=== PATIENT | female | born 1940 | race Caucasian/White ===

== ENCOUNTER 2023-11-01 12:07 | Emergency (ER) | payer MEDICARE, SELFPAY ==
[2023-11-01] VITALS (7 sets, daily range): BP systolic 142–169; BP diastolic 51–66; BMI 32.8
--- NOTE | 2023-11-01 15:09 | CM ---
CM received consult from RN regarding concerns that patient is unable to care for herself at home. CM reviewed medical records. This is the first presented noted in [facility]. CM will follow up.
--- NOTE | 2023-11-01 15:43 | CM ---
Addendum entered by Angelita Osei RN 11/01/23 15:54:
Patient has been to [facility] as per nimali, but she would not like her placed there if needed.
Original Note:
CM met with patient in room and niece in room. Patient's niece reports patient lives alone. Niece and patient's daughter are supportive, but cannot at this time provide 24 hour supervision. Niece reports that patient often does not wear her oxygen
and she believes that is contributing to some changes in behavior. Patient has been increasingly confused in the last few weeks. Patient called nimali in the middle of the night to complain that Jatin Emerson was in her apartment. Niece was able to
reorient her at that time. Patient lives in an apartment with elevators. Patient's niece reports that patient has been 'waiting for her mother to pick her up' in the lobby of the apartment complex.
Patient has been resistant to placement. CM advised that patient may need 24 hour supervision pending clinical work up. Robin will discuss further options including caregivers in the home. CM will continue to follow as needed.
[2023-11-01 17:15] LABS: Urine Albumin Negative (Neg - Trace); Urine Bilirubin Negative (Negative); Urine Character Clear (Clear); Urine Color Straw; Urine Glucose Trace (Negative); Urine Ketone Negative (Negative); Urine Leukocyte Negative (Negative); Urine Nitrite Negative (Negative); Urine Occult Blood Negative (Negative); Urine Urobilinogen Negative (Neg - 1+); Urine pH 6.5 (5.0-9.0)
[2023-11-01 17:26] LABS: % Basophils 3.2 % (0-2); % Eosinophils 7.5 % (0-6); % Immature Granulocytes 0.6 % (0-0.5); % Lymphocytes 36.3 % (20.5-51.1); % Monocytes 11.9 % (1.7-9.3); % Neutrophils 40.5 % (42.2-75.2); Absolute Basophils 0.2 10^3/uL (0-0.2); Absolute Eosinophils 0.4 10^3/uL (0-0.7); Absolute Lymphocytes 1.8 10^3/uL (1.2-3.4); Absolute Monocytes 0.6 10^3/uL (0.1-0.6); Hematocrit 27.2 % (37.0-47.0); Hemoglobin 9.5 g/dL (12.0-16.0); Mean Corp Hgb Conc. 34.9 g/dL (33.0-37.0); Mean Corpuscular Hgb 38.2 pg (27.0-31.0); Mean Corpuscular Volume 109.2 fL (81.0-99.0); Mean Platelet Volume 11.7 fL (7.4-10.4); Nucleated Red Blood Cells % 0 %; Platelet Count 409 10^3/uL (130-400); Red Blood Cell Count 2.49 10^6/uL (4.20-5.40)
[2023-11-01 17:30] LABS: Venous Blood Gas B.E. -0.2 mmol/L (-4 to +4); Venous Blood Gas HCO3 24.8 mmol/L (22-27); Venous Blood Gas O2 Sat % 98.5 %; Venous Blood Gas pCO2 41 mmHg (35-48); Venous Blood Gas pH 7.39 (7.32-7.43); Venous Blood Gas pO2 139 mmHg (30-50)
[2023-11-01 17:41] LABS: ALT (SGPT) 24 U/L (0-35); AST (SGOT) 24 U/L (14-36); Albumin 4.2 g/dl (3.5-5.0); Alkaline Phosphatase 94 U/L (38-126); Blood Urea Nitrogen 48 mg/dl (7-17); Calcium 10.7 mg/dl (8.4-10.2); Carbon Dioxide 23 mmol/L (22-30); Chloride 101 mmol/L (98-107); Estimated Creatinine Clearance 22 ml/min; Glucose 130 mg/dl (70-99); Potassium 5.5 mmol/L (3.5-5.1); Sodium 133 mmol/L (135-145); Total Bilirubin 0.6 mg/dl (0.2-1.3); Total Protein 7.3 g/dl (6.3-8.2); eGFR 27.44
[2023-11-01 17:43] LABS: Anisocytosis 2+; Macrocytosis 2+; Microcytosis 1+; Normal RBC Morphology No; Polychromasia Slight; Spherocytes 1+
--- NOTE | 2023-11-01 19:17 | ED.GENMED ---
History of Present Illness
General
Chief Complaint: Change in Mental Status
Source: patient and family
Time Seen by Provider: 11/01/23 14:07
Travel History
Have you had any contact with someone who has COVID-19?: No
Do you have any symptoms of coronavirus? Fever > 100 degrees, chills, cough, shortness of breath, sore throat, loss of taste or smell, muscle aches, or headache?: No
History of Present Illness
History of Present Illness:
83-year-old female presents with family who is concerned for the last few weeks up to 1 month has been having times where she seems little confused and is not making sense. She lives alone but sometimes when she speaks with the niece she does not
seem herself. Patient and family admit that she supposed to be on oxygen 11/02 but many times she pulls it off. She specifically pulls it off at night. Further history reveals that she has a history of obstructive sleep apnea but decided not to
get or wear CPAP. Patient denies fevers. No fall. She has a history of anemia and is followed by hematology. No chest pain or shortness of breath. In bed the patient has no complaints. She was sent by PCP to get a CT
Past History
Past History
ED Past Medical History: HTN, NIDDM and Other (Pulmonary hypertension, obstructive sleep apnea)
Phy Exam
Physical Exam
Physical Exam:
CONSTITUTIONAL Patient alert and oriented to person, place and time. Well-appearing. Vital signs reviewed.
HEAD atraumatic, normocephalic.
EYES eyelids normal to inspection, Pupils equally round and reactive to light, Extraocular muscles intact, Conjunctiva normal, Sclera normal.
NECK normal range of motion, Trachea midline, no jugular venous distention.
RESPIRATORY CHEST No respiratory distress noted, Chest expansion equal, Bilateral breath sounds clear.
CARDIOVASCULAR regular rate and rhythm, Heart sounds normal.
ABDOMEN abdomen nontender, Bowel sounds normal. No distention.
BACK normal inspection, no obvious deformities
UPPER EXTREMITY range of motion normal, Motor strength normal, no cyanosis, no edema.
LOWER EXTREMITY range of motion normal, Motor strength normal, no cyanosis, no edema.
NEURO Speech normal, No focal motor deficits, [place] coma scale 15, Memory normal, Cranial Nerves intact to screening exam.
SKIN skin warm, dry, and normal in color.
PSYCHIATRIC patient oriented to person place and time, Normal affect.
Course
Orders/Labs/Results
Orders:
Orders
11/01/23 12:34
Case Management Consult ONCE
Case Management Consult: Discharge Planning
Requested By:: NURSING
Comment: PT. lives alone and gets confused.
11/01/23 14:07
CT Head W/o Iv Contrast Urgent
Comment:
Reason For Exam: falls , change in ms
11/01/23 14:30
Complete Blood Count/With Diff Urgent
Comprehensive Metabolic Panel Urgent
Venous Blood Gas Urgent
%Oxygen/Room Air: 2l
11/01/23 16:57
Urinalysis Reflex To Culture Urgent
Date Specimen was Collected: 11/01/23
Time Specimen was Collected: 16:55
11/01/23 19:16
Sodium Zirconium Cyclosilicate [Lokelma] 10 gram PO NOW STA
Abnormal Lab Results
11/01/23 11/01/23
14:30 16:57
RBC 2.49 L 10^6/uL
(4.20-5.40)
Hgb 9.5 L g/dL
(12.0-16.0)
Hct 27.2 L %
(37.0-47.0)
MCV 109.2 H fL
(81.0-99.0)
MCH 38.2 H pg
(27.0-31.0)
Plt Count 409 H 10^3/uL
(130-400)
MPV 11.7 H fL
(7.4-10.4)
Immature Gran % 0.6 H %
(0-0.5)
Neutrophils % 40.5 L %
(42.2-75.2)
Monocytes % 11.9 H %
(1.7-9.3)
Eosinophils % 7.5 H %
(0-6)
Basophils % 3.2 H %
(0-2)
VBG pO2 139 H mmHg
(30-50)
Sodium 133 L mmol/L
(135-145)
Potassium 5.5 H mmol/L
(3.5-5.1)
BUN 48 H mg/dl
(7-17)
Creatinine 1.8 H mg/dL
(0.6-1.0)
Glucose 130 H mg/dl
(70-99)
Calcium 10.7 H mg/dl
(8.4-10.2)
Urine Glucose Trace A
(Negative)
11/01/23 14:30
11/01/23 14:30
Vital Signs
Initial and Last Documented VS:
Initial Vital Signs
Temp Pulse Resp BP Pulse Ox
98.0 F 64 18 142/66 91
11/01/23 12:25 11/01/23 12:25 11/01/23 12:25 11/01/23 12:25 11/01/23 12:25
Last Documented Vital Signs
Temp Pulse Resp BP Pulse Ox
98.0 F 58 19 151/62 97
11/01/23 12:25 11/01/23 19:30 11/01/23 19:30 11/01/23 19:00 11/01/23 19:30
MDM/Problems Addressed
MDM/Problems Addressed:
Renal sufficiency, hyperkalemia, change in mentation
*Radiology
Radiology exam reviewed: preliminary read by ED provider (No obvious intracranial hemorrhage) and radiology read reviewed
*Pulse Oximetry
Patient hypoxic: no
*[facility] Intern Interpretation
Rate: normal
Interpretation: normal
Rhythm: sinus
*Critical Care Note
Total Time (30-74mins, 75-104mins- exclusive of procedures): Not Applicable
Data Reviewed
Source: patient
Further Testing Considered But Not Given:
Consider blood cultures but afebrile white count normal.
Patient Management
Escalation/DeEscalation of care consider admission/obs:
Patient has intermittent lucid periods and confusion at times. Family states that since she has been here and on oxygen she has been totally normal and back to her baseline. Question whether this is related hypoxia is soft finger hypercarbia due
to obstructive sleep apnea. Recommended her to wear her oxygen and consider a repeat sleep study. Okay for discharge
ED Attending Note
-
Portions of this chart may have been created with voice recognition software.� Occasional wrong word or��sound alike� substitutions may have occurred due to the inherent limitations of voice recognition software.
Discharge Plan
Departure
Patient Disposition: Home (Routine Discharge)
Date of Disposition: 11/01/23
Time of Disposition: 19:17
Patient with high blood pressure during this ER visit?: Yes
Discharge Problem:
Chronic renal impairment, Altered mental status, Obstructive sleep apnea
Instructions: Chronic kidney disease, Altered Mental Status (DC), BLOOD PRESSURE
Referrals:
Ivette Rodriguez MD [Family Provider] -
Activity Restrictions/Additional Instructions:
Please do not take your losartan or potassium supplementation until further advised by your doctor. Please have repeat lab work performed in the next 3 to 5 days. Return immediately for palpitations, changes in mentation, fevers, weakness of any
kind or any other concerns. Please be sure to follow-up with your doctor regarding a sleep study. Please wear your oxygen as advised by your doctor.
Interventions
Interventions:
*Risk Screen - Suicide Last Done: 11/01/23 16:59
*General Assessment Last Done: 11/01/23 16:59
*Neglect/Abuse Screening Last Done: 04/12/24 17:32
ED- Fall Risk Assessment Last Done: 11/01/23 16:59
*ED COVID-19 Vaccine History Last Done: 11/01/23 16:59
*Nursing Disposition Last Done: 11/01/23 20:09
ED- Pulmonary Assessment Last Done: 11/01/23 16:59
ED-Psychological Assessment Last Done: 11/01/23 17:32
ED- Neurological Assessment Last Done: 11/01/23 16:59
ED- Cardiac Assessment Last Done: 11/01/23 16:59
Discharge Date and Time
Discharge Date/Time: 11/01/23 20:11
Print Language: ALBANIAN
[2023-11-01] MEDS: LOKELMA 10 GRAM PO (19:35)
== END 2023-11-01 20:11 | disposition home or self-care (01) ==
LOC: EMR 12:07
PROVIDERS: EMERGENCY PHYSICIAN Emergency Medicine; FAMILY PHYSICIAN Family Medicine
DX: N18.9 Chronic kidney disease, unspecified (principal); R41.82 Altered mental status, unspecified; G47.33 Obstructive sleep apnea (adult) (pediatric); I12.9 Hypertensive chronic kidney disease with stage 1 through stage 4 chronic kidney disease, or unspecified chronic kidney disease; E11.22 Type 2 diabetes mellitus with diabetic chronic kidney disease; E87.5 Hyperkalemia; Z99.81 Dependence on supplemental oxygen
CPT/HCPCS: 99284; 70450; 80053; 81003; 82805; 85025; 99283